=== PATIENT | male | born 1950 | race Caucasian/White ===

== ENCOUNTER 2017-04-05 10:05 | Inpatient (IN) | payer MEDICARE ==
[2017-04-05] VITALS (9 sets, daily range): BP systolic 124–154; BP diastolic 64–111
[~2017-04-05] VITALS: Ht 170.2 cm; Wt 65.8 kg
[2017-04-05 10:41] LABS: URINE BLOOD 3+ (Negative); URINE CLARITY CLEAR; URINE COLOR YELLOW; URINE GLUCOSE-RANDOM NEGATIVE (Negative); URINE LEUKOCYTES-REFLEX NEGATIVE (Negative); URINE NITRITE-REFLEX NEGATIVE (Negative); URINE PROTEIN NEGATIVE (Negative)
[2017-04-05 10:43] LABS: ABSOLUTE BASOPHILS 0.1 thou/uL (0.0-0.2); ABSOLUTE LYMPHOCYTES 1.5 thou/uL (0.8-5.3); ABSOLUTE MONOCYTES 0.6 thou/uL (0.0-1.2); ABSOLUTE NEUTROPHILS 10.5 thou/uL (1.6-8.1); BASOPHILS 0.7 %; EOSINOPHILS 0.2 %; HEMATOCRIT 49.9 % (42.0-52.0); HEMOGLOBIN 16.9 gm/dL (14.0-18.0); LYMPHOCYTES 11.8 %; MCH 34.3 pg (26.0-34.0); MCHC 33.9 g/dL (28.0-37.0); MCV 101.3 fL (80.0-100.0); MONOCYTES 5.1 %; MPV 7.3 fl. (7.2-11.1); NUCLEATED RBCS 0 /100WBC; PLATELET COUNT* 211 thou/uL (150-400); POLYS 82.2 %; RBC 4.93 mil/uL (4.50-6.00); RDW-CV 12.8 % (10.5-14.5); WBC 12.8 thou/uL (4.0-11.0)
[2017-04-05 10:44] LABS: ICTOTEST (BILI CONFIRMATORY) Negative (Negative); URINE BILIRUBIN 1+ (Negative); URINE KETONES 3+ (Negative); URINE REDUCING SUBSTANCE NEGATIVE (Negative)
[2017-04-05 10:50] LABS: BACTERIA-REFLEX 1-9 Few /HPF (None Seen); CALCIUM 8.9 mg/dL (8.5-10.1); CASTS None Seen /LPF (None Seen); CREATININE 0.9 mg/dL (0.6-1.3); CRYSTALS None Seen /LPF (None Seen); MUCUS None Seen strn/LPF (None Seen); POTASSIUM 3.9 mmol/L (3.5-5.1); SQUAMOUS 0-3 Few /LPF (0-3); URINE WBC-REFLEX 0-5 Rare /HPF (0-5)
[2017-04-05 10:55] LABS: ALBUMIN 3.7 g/dL (3.4-5.0); TOTAL BILIRUBIN 0.9 mg/dL (<0.1-1.0); TOTAL PROTEIN 7.9 g/dL (6.4-8.2)
[2017-04-05 11:41] LABS: APTT 28.9 Seconds (25.0-31.3); INR 1.1; PROTIME 10.7 Seconds (9.20-11.50)
[2017-04-05 16:52] LABS: HEMATOCRIT 44.3 % (42.0-52.0); MCH 33.9 pg (26.0-34.0); MCHC 33.2 g/dL (28.0-37.0); MCV 102.3 fL (80.0-100.0); MPV 7.3 fl. (7.2-11.1); RBC 4.33 mil/uL (4.50-6.00); RDW-CV 12.8 % (10.5-14.5); WBC 16.7 thou/uL (4.0-11.0)
[2017-04-05 16:53] LABS: HEMOGLOBIN 14.7 gm/dL (14.0-18.0)
[2017-04-05 17:03] LABS: CALCIUM 7.5 mg/dL (8.5-10.1); CREATININE 0.8 mg/dL (0.6-1.3); POTASSIUM 4.5 mmol/L (3.5-5.1)
--- NOTE | 2017-04-05 17:29 | EKG ---
[place] [address] ELECTROCARDIOGRAM REPORT Name: JOHN GOULD Room: [address] ADM IN .R.#: [id number] Admission: 04/05/17 Attend Phys: Adele Quevedo MD Discharge: Date of : 52 Report #: [id number] THIS REPORT FOR: //name// [facility] ED Test Date: 2017-04-05 Test Time: 11:38:42 Pat Name: JOHN GOULD Department: Room: [facility] Gender: M Collar Tailor: Jake SHEARER : 1950 Requested By: Scout Cole Order Number: [id number] MD: Angel Rodriguez Measurements Intervals [place] Rate: 82 P: 49 SD: 180 QRS: 21 QRSD: 85 T: 37 QT: 383 QTc: 448 Interpretive Statements Sinus rhythm Probable left atrial enlargement Baseline wander in lead(s) V6 No previous ECG available for comparison Electronically Signed On 04-05-2017 17:29:30 COMMERCIAL INTERN by Angel Rodriguez [email or web address] <ELECTRONICALLY SIGNED> By: Angel Rodriguez MD, [facility] 04/05/17 1729 1138 [id number] Anegl Rodriguez MD, [facility] /EPI
[2017-04-06] VITALS: BP 122/65
[2017-04-06 02:00] VITALS: BP 116/62
[2017-04-06 02:51] LABS: HEMATOCRIT 41.2 % (42.0-52.0); HEMOGLOBIN 13.8 gm/dL (14.0-18.0); MCHC 33.5 g/dL (28.0-37.0); MCV 101.6 fL (80.0-100.0); MPV 7.4 fl. (7.2-11.1); RBC 4.06 mil/uL (4.50-6.00); RDW-CV 12.4 % (10.5-14.5); WBC 12.6 thou/uL (4.0-11.0)
[2017-04-06 03:07] LABS: ALBUMIN 2.7 g/dL (3.4-5.0); CALCIUM 7.9 mg/dL (8.5-10.1); CREATININE 0.8 mg/dL (0.6-1.3); POTASSIUM 3.9 mmol/L (3.5-5.1); TOTAL BILIRUBIN 0.6 mg/dL (<0.1-1.0); TOTAL PROTEIN 6.2 g/dL (6.4-8.2)
[2017-04-06 04:00] VITALS: BP 115/61
[2017-04-06 05:45] VITALS: BP 115/61
--- NOTE | 2017-04-06 06:23 | NUR ---
PATIENT PROGRESSING TOWARDS GOALS. ORIENT X4, AFEBRILE, NO ACUTE HEMODYNAMIC CHNAGES OVER NIGHT, BILATERAL GROIN SITES INTACT NO PRESENTS OF HEMATOMA DENIES PAIN, N/V, PULSES 2+ BILATERAL. WILL CONTINUE TO MONITOR CLOSELY
--- NOTE | 2017-04-06 07:23 | OP ---
[address] [address] OPERATIVE REPORT Name: JOHN GOULD Room: [address] IN M.R.#: [id number] Admission: 04/05/17 Attend Phys: Adele Quevedo MD Discharge: Date of : 52 Report #: [id number] THIS REPORT FOR: //name// CC: YANCY physician/PCP Adele Quevedo DATE OF SERVICE: 04/05/2017 PREOPERATIVE DIAGNOSIS: Symptomatic 11 cm abdominal aortic aneurysm. POSTOPERATIVE DIAGNOSIS: Symptomatic 11 cm abdominal aortic aneurysm. OPERATION: 1. Ultrasound-guided access to the bilateral common femoral arteries. 2. Common femoral artery exposures. PROCEDURE: Endovascular abdominal aortic aneurysm repair with 26 mm Ovation stent graft with 22 x 160 iliac limbs. SURGEON: Andrea Villagran DO INNOVATION MANAGER: SHAAN Ramsay ANESTHESIA: General. ESTIMATED BLOOD LOSS: 150 mL. FLUIDS: 1200 crystalloid. URINE OUTPUT: 800. SPECIMENS: None. COMPLICATIONS: None. IMPLANTS: Ovation 26 mm main body with two 22 x 160 mm iliac limb extensions. FINDINGS: Ultrasound demonstrated bilateral common femoral arteries to be compressible with some mild posterior wall plaque suitable for access. Initial aortogram demonstrated large infrarenal aorta sparing the iliac vessels. His bilateral renal arteries were patent without significant stenosis. Bilateral common internal and external iliac arteries were patent without significant stenosis. Following deployment of the Ovation stent graft, there was complete, exclusion of the abdominal aortic aneurysm with good iliac runoff. His bilateral renal arteries again were patent without any significant stenosis. [facility] [address] [place] [address] OPERATIVE REPORT Name: JOHN GOULD Room: [address] IN M.R.#: [id number] Admission: 04/05/17 Attend Phys: Adele Quevedo MD Discharge: Date of : 52 Report #: [id number] CLINICAL HISTORY: The patient is a 66-year-old man who presented to the [place] [facility] with several day history of back and bilateral groin pain. He had no prior known history of abdominal aortic aneurysm. Workup included CAT scan, which demonstrated a large 11 and a 12 cm infrarenal abdominal aortic aneurysm. Given his symptoms and large size of the aneurysm, urgent repair was recommended. DETAILS OF PROCEDURE: After informed consent was obtained, the patient was taken to the operating room and placed on the OR bed in supine position. He was administered general anesthesia by the anesthesia team. The abdomen and groins were prepped and draped in the usual sterile fashion. Full timeout was performed identifying correct patient and procedure. Using ultrasound guidance, the left common femoral artery was identified, was accessed with micropuncture needle. These images were preserved. Using Seldinger technique, the microwire and microsheath were advanced under fluoroscopic guidance. I then made a small skin incision in the left groin, bluntly dissected down exposed the common femoral artery. I then exchanged out for a Glidewire Advantage and deployed 2 Proglides in a preclose fashion. We then placed an 11-[place] sheath. I then passed the flush catheter over the Glidewire Advantage into the thoracic aorta and exchanged out for a Grisel wire. I then turned my attention to the right groin again in a similar technique, used ultrasound to access the right common femoral artery using micropuncture technique, again preserving these images, a small skin incision and bluntly dissected down with a hemostat and exposed in the common femoral artery. I then again deployed 2 ProGlides in a preclose fashion and replaced with an 11-[place] sheath. I then passed the Glidewire Advantage into the thoracic aorta and passed flush catheter over the wire to the level of the renal vessels. I then performed the aortogram with the findings noted above. We then loaded the 26 mm [email or web address] aortic body system over the guidewire. We inserted delivery system into the aorta until advanced into the radiopaque markers that were about 1 cm proximal to the landing site. We then oriented the aortic body to the appropriate position in order to access the contralateral limb. We then retracted the delivery system outer sheath until the sheath retraction the handle. We then verified the aortic body markers in the long delivery system to verify they were in correct position. We then deployed the first segment of the proximal stent by turning the first stent knob, quarter turned counterclockwise and detaching from handle. We then precisely positioned the implant at the final proximal landing site. We then used contrast injections to confirm good implant position relative to the renal vessels within retractor in the angiographic catheter with the proximal stent. I then deployed the remainder of the proximal stent by turning the 2nd knob, quarter turned counterclockwise and detached from the handle. We removed the [place] cap from the palmar injection port on the handle and attached the fill syringe to it. We retracted the aortic body guidewire tip to the radiopaque marker distal to the aortic body. We used fluoroscopy to intermittently observe filling of the graft with a [facility] [address] [place] [address] OPERATIVE REPORT Name: JOHN GOULD Room: [address] IN M.R.#: [id number] Admission: 04/05/17 Attend Phys: Adele Quevedo MD Discharge: Date of : 52 Report #: [id number] radiopaque fill polymer. We obtained contralateral limb access by using the 0.014 wire and obtaining up and over access and snaring it from the contralateral limb. We were then able to exchange out for the 0.035 Glidewire Advantage into the contralateral limb. We then loaded the 22 x 160 iliac limb over the contralateral guidewire and again used fluoroscopic guidance to insert the iliac limb to the appropriate position in relation to the internal iliac vessel. We then confirmed the distal limb landing sites and deployed the limb in standard fashion. We then turned our attention to the ipsilateral limb and then again placed the 22 x 160 iliac limb over the wire after taking angiographic images to confirm the internal iliac bifurcation. We then deployed the ipsilateral iliac limb in standard fashion. Following this, we then postdilated the iliac limbs at the proximal portion with a 10 mm balloons in a kissing technique. I then angioplastied the right common iliac artery. The 10 mm balloon had very slight waist, but fully effaced. At this point, we then advanced the flush catheter over the ipsilateral limb positioned just proximal to the renal vessels and then performed a completion aortogram which demonstrated that the bilateral renal arteries filled without stenosis. There was complete exclusion of the aneurysm. There was no evidence of endoleak present. He had good iliac runoff as well. Satisfied with the result, the wires and sheaths were removed and the ProGlide sutures were secured in standard fashion. I partially reversed the heparin with 30 mg of protamine. Manual pressure was held for 5 minutes. Once hemostasis was ensured, the skin incisions were closed with 4-0 Monocryl suture and local anesthetic was infiltrated and then sterile dressings were applied. All sponge, sharp and instrument counts were reported as correct x 2. He tolerated the procedure well. He was extubated and transferred to the recovery room in stable condition. <ELECTRONICALLY SIGNED> By: Andrea Villagran DO 04/06/17 0723 1631 [id number] Villagran DO /nt
--- NOTE | 2017-04-06 07:23 | CON ---
[address] [address] CONSULTATION Name: JOHN GOULD Room: [address] IN .R.#: [id number] Admission: 04/05/17 Attend Phys: Adele Quevedo MD Discharge: Date of : 52 Report #: [id number] THIS REPORT FOR: //name// CC: YANCY physician/PCP Adele Quevedo DICTATED BY: Rica KAUR DATE OF SERVICE: 04/05/2017 REASON FOR CONSULTATION: Abdominal aortic aneurysm. HISTORY OF PRESENT ILLNESS: The patient is a very pleasant 66-year-old male who presented to the Emergency Department today with complaints of abdominal pain as well as some recent fevers. He was sent for a noncontrast CT scan of the abdomen and pelvis, which incidentally demonstrated a 10 cm abdominal aortic aneurysm with adjacent ill-defined soft tissue density suggesting partial or impending rupture. We have been asked to evaluate the patient and give our opinion regarding these findings. He reports over the last couple of days, he has had low back pain that would radiate around to the right groin. He also reports feeling like he developed a hernia in the right groin over the past 7 months, which he was able to reproduce. He denies any current abdominal pain. He denies any family history of aneurysms. He is a smoker, has not had his blood pressure checked in over a year. He currently denies any chest pain, shortness of breath, nausea or vomiting. PAST MEDICAL HISTORY: None. PAST SURGICAL HISTORY: Repair of a broken nose as a teenager. ALLERGIES: SULFA. HOME MEDICATIONS: None. SOCIAL HISTORY: He is a smoker. He reports occasional alcohol use, no illicit drug use. He is . He has grown children. FAMILY HISTORY: Denies any family history of aneurysms. His mother did have a history of coronary artery disease with cardiac stenting. REVIEW OF SYSTEMS: A 12-point review of systems has been reviewed and is negative except for the above-mentioned in the history of present illness. PHYSICAL EXAMINATION: VITAL SIGNS: Temperature 36.7, heart rate 73, blood pressure 129/84 and oxygen saturation 95% [place] [address] CONSULTATION Name: DAYANNASASKIAJOHN Feliberto Room: [address] IN [facility]#: [id number] Admission: 04/05/17 Attend Phys: Adele Quevedo MD Discharge: Date of : 52 Report #: [id number] GENERAL: He is alert and oriented and in no acute distress. HEENT: Head is normocephalic and atraumatic. NECK: Supple without jugular venous distention or carotid bruit. HEART: Regular rate and rhythm with no murmurs, clicks or extra heart tones. CHEST: Lungs are clear to auscultation bilaterally. ABDOMEN: Soft. He does have a pulsatile mass on the left side of his abdomen that is nontender. He has positive bowel sounds. EXTREMITIES: Palpable bilateral radial, femoral, popliteal, dorsalis pedis and posterior tibialis pulses. NEUROLOGIC: Alert and oriented with no focal neurologic deficits. LABORATORY DATA: Hemoglobin 16.9, hematocrit 49.9, white blood cell count 12.8 and platelets are 211. Sodium 137, potassium 3.9, chloride 102, CO2 of 24, BUN 14, creatinine 0.9 and glucose 108. ASSESSMENT AND PLAN: Abdominal aortic aneurysm measuring 10 x [address] A CTA of abdomen and pelvis has been ordered stat for a better evaluation of his aneurysm. We will plan for urgent endovascular abdominal aortic aneurysm repair today with Dr. Andrea Villagran. Risks and benefits of the procedure have been discussed with the patient. He states he understands the recommendation and is agreeable to proceed. We thank you for the opportunity to participate in the care of the patient. Please feel free to contact our office with any questions or concerns. <ELECTRONICALLY SIGNED> By: Andrea Villagran DO 04/06/17 0723 1306 [id number] Villagran DO /nt
--- NOTE | 2017-04-06 07:30 | NUR ---
8165 ASSUMED CARE OF PT. PLEASE SEE DOCUMENTED ASSESSMENT. PT IS AXOX4. IVF SALINE LOCKED. FERGUSON CATHETER DC'D. BILATERAL GROIN SITES C/D/I W/DERMABOND NOTED. GOALS FOR THIS SHIFT ARE TO: INCREASE ACTIVITY (GETTING UP TO CHAIR) AND POSSBILE DISCHARGE HOME IF OK W/VASCULAR.
[2017-04-06] MEDS ORDERED: HYDROCODON-ACE1 EAC7 PO (07:34)
[2017-04-06] MEDS ORDERED: ASPIR 8181 MG PO (07:34)
[2017-04-06 08:00] VITALS: BP 118/74
--- NOTE | 2017-04-06 09:23 | NUR ---
DR. MYLES HERE W/VASCULAR AND CLEARED PT TO GO HOME. NOTIFIED DR. MOBLEY THAT PT WAS OK FOR D/CHARGE HOME.
[2017-04-06 09:42] VITALS: BP 118/74
--- NOTE | 2017-04-06 10:30 | NUR ---
PT GIVEN DISCHARGE INSTRUCTIONS. BOTH PT AND SPOUSE VERBALIZED UNDERSTANDING. IV REMOVED, CANNULA REMOVED IN ITS ENTIRETY. PT DISCHARGED HOME TO SELF CARE. PT TAKEN OUT TO FAMILY VEHICLE VIA W/CHAIR.
== END 2017-04-06 10:30 | disposition home or self-care (01) | DRG 269 ==
LOC: M.ERS 10:05 → M.TBA-ER 12:18 → M.ICU 17:26
PROVIDERS: Physician Assistant; Surgery; ADMIT Internal Medicine
PROC: 04V03DZ Restriction of Abdominal Aorta with Intraluminal Device, Percutaneous Approach (ICD-10-PCS; principal; 2017-04-05)
DX: I71.4 Abdominal aortic aneurysm, without rupture (principal); I16.1 Hypertensive emergency; E44.1 Mild protein-calorie malnutrition; F17.210 Nicotine dependence, cigarettes, uncomplicated; D72.829 Elevated white blood cell count, unspecified; Z88.2 Allergy status to sulfonamides; Z82.49 Family history of ischemic heart disease and other diseases of the circulatory system

== ENCOUNTER → 2017-05-03 | Outpatient (CLI) | payer MEDICARE ==
[~2017-05-03] MED LIST: ASPIR 8181 MG PO; HYDROCODON-ACE1 EAC7 PO
== END ==
LOC: M.LAB 08:03 → M.CT 09:30
PROVIDERS: Surgery
DX: I71.4 Abdominal aortic aneurysm, without rupture (principal)

== ENCOUNTER → 2017-10-07 | Outpatient (CLI) | payer MEDICARE ==
[2017-10-07 10:04] LABS: CREATININE 0.8 mg/dL (0.6-1.3)
== END ==
LOC: M.LAB 09:42 → M.CT 11:30
PROVIDERS: Surgery
DX: I71.4 Abdominal aortic aneurysm, without rupture (principal)

== ENCOUNTER → 2018-04-01 | Outpatient (CLI) | payer MEDICARE ==
[2018-04-01 10:29] LABS: CREATININE 0.9 mg/dL (0.6-1.3)
== END ==
LOC: M.LAB 03-27 10:55
PROVIDERS: Surgery
DX: I71.4 Abdominal aortic aneurysm, without rupture (principal); Z95.828 Presence of other vascular implants and grafts

== ENCOUNTER → 2019-03-18 | Outpatient (CLI) | payer MEDICARE | LOC: M.LAB 07:38 → M.CT 09:00 | PROVIDERS: Surgery | DX: I71.4 Abdominal aortic aneurysm, without rupture (principal); N20.0 Calculus of kidney; N28.1 Cyst of kidney, acquired ==

== ENCOUNTER → 2020-03-11 | Outpatient (CLI) | payer MEDICARE | LOC: M.LAB 07:47 → M.CT 09:00 | PROVIDERS: ATTEND Surgery | DX: N28.1 Cyst of kidney, acquired (principal); I71.4 Abdominal aortic aneurysm, without rupture; N20.0 Calculus of kidney ==